=== PATIENT | male | born 1975 | race Caucasian/White ===

== ENCOUNTER 2024-01-10 11:10 | Emergency (ER) | payer SELFPAY ==
--- NOTE | 2024-01-10 11:12 | ECG_ITS ---
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
[2024-01-10 11:20] VITALS: BP 124/90; PULSE 114; TEMP 37.1; O2SAT 96; BMI 17.0
[2024-01-10 11:27] LABS: Basophils Percent Auto 0.1 % (0.2-2.0); Hematocrit 47.6 % (42.0-54.0); Hemoglobin 16.2 g/dL (14.0-18.0); Immature Granulocytes Abs Auto 0.11 10^3/uL (0.00-0.03); Immature Granulocytes Pct Auto 0.5 % (0.0-0.5); Lymphocytes Absolute Auto 1.3 10^3/uL (1.2-3.8); Lymphocytes Percent Auto 5.7 % (20.5-60.0); Mean Corpuscular Hemoglobin 31.5 pg (25.9-34.0); Mean Corpuscular Volume 92.6 fL (80.0-94.0); Mean Platelet Volume 10.1 fL (9.5-13.5); Monocytes Absolute Auto 1.2 10^3/uL (0.3-0.8); Monocytes Percent Auto 5.4 % (1.7-12.0); Neutrophils Absolute Auto 19.7 10^3/uL (1.4-6.5); Neutrophils Percent Auto 88.3 % (43.0-75.0); Platelet Count 288 10^3/uL (150-450); Red Blood Count 5.14 10^6/uL (4.70-6.10); Red Cell Distribution Width 12.8 % (11.0-15.0); White Blood Count 22.3 10^3/uL (4.0-11.0)
[2024-01-10 11:38] LABS: Bilirubin Urine NEGATIVE (NEGATIVE); Blood Urine MODERATE (NEGATIVE); Clarity Urine CLEAR (CLEAR); Color Urine YELLOW (YELLOW); Glucose Urine UA NEGATIVE (NEGATIVE); Ketones Urine NEGATIVE (NEGATIVE); Leukocyte Esterase Urine NEGATIVE (NEGATIVE); Nitrite Urine NEGATIVE (NEGATIVE); Protein Urine 100 mg/dL (NEG/TRACE); Specific Gravity Urine >=1.030 (1.005-1.025); pH Urine 5.5 (5.0-9.0)
[2024-01-10 11:39] LABS: Urine Microscopic Indicated YES
[2024-01-10 11:43] LABS: Alanine Aminotransferase 67 U/L (16-63); Albumin Globulin Ratio 1.2; Albumin Level 4.8 g/dL (3.4-5.0); Alkaline Phosphatase 68 U/L (46-116); Anion Gap 16.1; Aspartate Amino Transferase 23 U/L (15-37); BUN Creatinine Ratio 21.4; Calcium 10.4 mg/dL (8.5-10.1); Carbon Dioxide 27.4 mmol/L (21.0-32.0); Chloride 94 mmol/L (98-107); Estimated GFR (African America 53 (>=60); Estimated GFR (Non-African Ame 44 (>=60); Ethanol <3 mg/dL; Globulin 4.1 g/dL; Glucose 163 mg/dL (74-106); Potassium 4.5 mmol/L (3.5-5.1); Sodium 133 mmol/L (136-145); Total Protein 8.9 g/dL (6.4-8.2)
--- NOTE | 2024-01-10 11:43 | XR_ITS ---
The [address] [address] Patient Name: FUAD DEE MRN: [id number] date: 1975 Sex: M Assigned Patient Location: ER Current Patient Location: ER Accession/Order Number: [id number] Exam Date: 01/10/2024 11:52 Report Date: 01/10/2024 12:06 At the request of: GISELLE LUJAN Procedure: XR chest 1V EXAM: XR chest 1V at 1148 hours HISTORY: elvated wbc COMPARISON: None. TECHNIQUE: AP upright portable chest x-ray FINDINGS: The heart is not enlarged and the vasculature is not distended. No acute infiltrate, effusion or pneumothorax is identified. The lungs appear somewhat overexpanded. The osseous structures are grossly intact. XR/XR chest 1V IMPRESSION: No acute infiltrate or evidence of cardiac decompensation. Electronically authenticated by: PIA LARRY Date: 01/10/2024 12:06
[2024-01-10 11:48] LABS: Amphetamine Screen Urine NEGATIVE (NEGATIVE); Barbiturates Screen Urine NEGATIVE (NEGATIVE); Benzodiazepines Screen Urine NEGATIVE (NEGATIVE); Buprenorphine Screen Urine NEGATIVE (NEGATIVE); Cannabinoid Screen Urine POSITIVE (NEGATIVE); Cocaine Screen Urine POSITIVE (NEGATIVE); Methadone Screen Urine NEGATIVE (NEGATIVE); Methamphetamines Screen Urine NEGATIVE (NEGATIVE); Opiate Screen Urine NEGATIVE (NEGATIVE); Oxycodone Screen Urine NEGATIVE (NEGATIVE); Phencyclidine Screen Urine NEGATIVE (NEGATIVE); Tricyclic Antidepressant Urine NEGATIVE (NEGATIVE)
[2024-01-10 11:51] LABS: Bacteria Urine SMALL #/HPF (NONE SEEN); Cast Seen? NONE SEEN #/LPF (NONE SEEN); Crystals Seen? None Seen #/HPF (None Seen); Mucus Urine NONE SEEN (NONE SEEN); Sperm Urine SEEN; Squamous Epithelial Cell Urine RARE #/LPF (NONE/RARE); Urine Culture Indicated YES
--- NOTE | 2024-01-10 11:59 | ED_ITS ---
HPI - Psych General Chief Complaint: Psychiatric Symptoms Stated Complaint: MENTAL HEALTH EVALUATION Time Seen by Provider: 01/10/24 11:12 Source: Reports patient Mode of arrival: walk-in Limitations: Reports no limitations History of Present Illness HPI Narrative: Patient presents to ED from [facility] for psychiatric evaluation. He called there and they sent him into the emergency room for psychiatric clearance. Patient has a history of schizophrenia bipolar and depression. He reports that he is feeling suicidal and has been hearing some voices. He did have a plan to crash his motorcycle however he does not have his motorcycle anymore so he said he would just use a knife. He denies any self-harm prior to arrival. He does admit to cocaine use last night. He reports chest pain that is been there for the past 2 weeks. He said he was recently in [facility] and they decrease his medication to so he decided to take himself off his medication recently. He does not remember what medication he is supposed to be on. He is alert and oriented and cooperative at this time. Denies abdominal pain nausea or vomiting. He does report chest pain but no cough or shortness of breath. No other complaints at this time. Related Data Home Medications ?Medication ?Instructions ?Recorded ?Confirmed No Known Home Medications 01/10/24 01/10/24 Allergies Allergy/AdvReac Type Severity Reaction Status Date / Time No Known Drug Allergies Allergy Verified 01/10/24 11:20 Review of Systems ROS Status of ROS 10 or more systems reviewed and unremark able except as noted in history and below Exam Constitutional Vital Signs, click to edit/add: Last Vital Signs Temp 98.7 F 01/10/24 11:20 Pulse 114 H 01/10/24 11:20 Resp 18 01/10/24 11:20 BP 124/90 01/10/24 11:20 Pulse Ox 96 01/10/24 11:20 O2 Del Method Room Air 01/10/24 11:20 Documenting provider has reviewed patient's vital signs: yes Common normals: no apparent distress Exam limitations: no altered mental status General appearance: cooperative [facility] Common normals: normocephalic and head/scalp atraumatic Throat: posterior oropharynx normal Chest Common normals: inspection of chest normal Respiratory Common normals: normal respiratory effort and clear to auscultation bilaterally Cardio Common normals: regular rate and regular rhythm GI Common normals: Normal to inspection, nondistended, normoactive bowel sounds present, soft to palpation and non-tender Course Vital Signs Vital signs: Vital Signs Temperature 98.7 F 01/10/24 11:20 Pulse Rate 114 H 01/10/24 11:20 Respiratory Rate 18 01/10/24 11:20 Blood Pressure 124/90 01/10/24 11:20 Pulse Oximetry 96 01/10/24 11:20 Oxygen Delivery Method Room Air 01/10/24 11:20 Temperature 98.7 F 01/10/24 11:20 Pulse Rate 114 H 01/10/24 11:20 Respiratory Rate 18 01/10/24 11:20 Blood Pressure 124/90 01/10/24 11:20 Pulse Oximetry 96 01/10/24 11:20 Oxygen Delivery Method Room Air 01/10/24 11:20 MDM - Psych MDM Narrative Medical decision making narrative: Patient is a labs show an elevated white blood cell count at 22 he however has no complaints of infectious nature. No fever no vomiting. He does complain of chest pain but a chest x-ray was ordered and is clear. Troponin is negative. At this time I do not see an infectious issue going on with the patient. He is stable here in ED. He is eating and drinking without any issue. He is medically cleared for further psychiatric care. Patient was accepted over at [address] For further psychiatric care Differential Diagnosis Differential diagnosis: Likely acute psychosis, chronic schizophrenia, suicidal ideation and bipolar disorder Medical Records Attestation: I reviewed the patient's medical records. Lab Data Attestation: I reviewed the patient's lab results. Labs: Lab Results 01/10/24 01/10/24 Range/Units 11:22 11:29 WBC 22.3 H (4.0-11.0) 10^3/uL RBC 5.14 (4.70-6.10) 10^6/uL Hgb 16.2 (14.0-18.0) g/dL Hct 47.6 (42.0-54.0) % MCV 92.6 (80.0-94.0) fL MCH 31.5 (25.9-34.0) pg MCHC 34.0 (29.9-35.2) g/dL RDW 12.8 (11.0-15.0) % Plt Count 288 (150-450) 10^3/uL MPV 10.1 (9.5-13.5) fL Neut % (Auto) 88.3 H (43.0-75.0) % Lymph % (Auto) 5.7 L (20.5-60.0) % [place] % (Auto) 5.4 (1.7-12.0) % Eos % (Auto) 0.0 L (0.9-7.0) % Baso % (Auto) 0.1 L (0.2-2.0) % Neut # (Auto) 19.7 H (1.4-6.5) 10^3/uL Lymph # (Auto) 1.3 (1.2-3.8) 10^3/uL [place] # (Auto) 1.2 H (0.3-0.8) 10^3/uL Eos # (Auto) 0.0 (0.0-0.7) 10^3/uL Baso # (Auto) 0.0 (0.0-0.1) 10^3/uL Abs Immat Gran (auto) 0.11 H (0.00-0.03) 10^3/uL Imm/Tot Granulo (auto) 0.5 (0.0-0.5) % Sodium 133 L (136-145) mmol/L Potassium 4.5 (3.5-5.1) mmol/L Chloride 94 L (98-107) mmol/L Carbon Dioxide 27.4 (21.0-32.0) mmol/L Anion Gap 16.1 BUN 36.0 H (7.0-18.0) mg/dL Creatinine 1.68 H (0.70-1.30) mg/dL Est GFR ( Amer) 53 L (>=60) Est GFR (Non-Af Amer) 44 L (>=60) BUN/Creatinine Ratio 21.4 Glucose 163 H (74-106) mg/dL Calcium 10.4 H (8.5-10.1) mg/dL Total Bilirubin 1.0 (0.2-1.0) mg/dL AST 23 (15-37) U/L ALT 67 H (16-63) U/L Alkaline Phosphatase 68 (46-116) U/L Troponin I High Sens 6.8 (4.0-76.1) pg/mL Total Protein 8.9 H (6.4-8.2) g/dL Albumin 4.8 (3.4-5.0) g/dL Globulin 4.1 g/dL Albumin/Globulin Ratio 1.2 Urine Color Yellow (YELLOW) Urine Clarity Clear (CLEAR) Urine pH 5.5 (5.0-9.0) Ur Specific [place] >=1.030 A (1.005-1.025) Urine Protein 100 A (NEG/TRACE) mg/dL Urine Glucose (UA) Negative (NEGATIVE) mg/dL Urine Ketones Negative (NEGATIVE) mg/dL Urine Occult Blood Moderate A (NEGATIVE) Urine Nitrite Negative (NEGATIVE) Urine Bilirubin Negative (NEGATIVE) Urine Urobilinogen 1.0 (0.2-1.0) EU/dL Ur Leukocyte Esterase Negative (NEGATIVE) Urine RBC 2-5 A (0-2) #/HPF Urine WBC 2-5 A (NONE SEEN) #/HPF Ur Squamous Epith Cells Rare (NONE/RARE) #/LPF Urine Crystals None seen (None Seen) #/HPF Urine Bacteria Small A (NONE SEEN) #/HPF Urine Casts None seen (NONE SEEN) #/LPF Urine Mucus None seen (NONE SEEN) Urine Sperm Seen Ur Culture Indicated? Yes Urine Opiates Screen Negative (NEGATIVE) Ur Buprenorphine Scrn Negative (NEGATIVE) Ur Oxycodone Screen Negative (NEGATIVE) Urine Methadone Screen Negative (NEGATIVE) Ur Barbiturates Screen Negative (NEGATIVE) U Tricyclic Antidepress Negative (NEGATIVE) Ur Phencyclidine Scrn Negative (NEGATIVE) Ur Amphetamines Screen Negative (NEGATIVE) U Methamphetamines Scrn Negative (NEGATIVE) U Benzodiazepines Scrn Negative (NEGATIVE) Urine Cocaine Screen Positive A (NEGATIVE) U Cannabinoids Screen Positive A (NEGATIVE) Ethanol Quant <3 mg/dL Imaging Data Chest x-ray: Radiologist's impression: ITS Impressions Chest X-Ray 01/10/24 11:43 IMPRESSION: No acute infiltrate or evidence of cardiac decompensation. Electronically authenticated by: PIA LARRY Date: 01/10/2024 12:06 ECG Data Attestation: I personally reviewed and interpreted this ECG as follows: Interpretation: EKG INTERPRETATION Time: []1135 Rate: []94 Rhythm: _ []Normal sinus rhythm ST segments: _ [] T waves: _ [] Ectopy: _ [] P wave/MI interval: _ [] QRS interval: _ [] QT interval: _ [] Comparison: _ [] Comparison EKG date: [] Performed by: [self]No acute ST elevation or depression Discharge Plan Discharge Chief Complaint: Psychiatric Symptoms Clinical Impression: Suicidal ideation Patient Disposition: [facility] Time of Disposition Decision: 15:30 [facility]charge [facility] Mode of Transportation: EMS Discharge Date/Time: 01/10/24 16:00
[2024-01-10 12:06] LABS: Troponin I High Sensitivity 6.8 pg/mL (4.0-76.1)
== END 2024-01-10 16:00 ==
PROVIDERS: Emergency Provider Emergency Medicine; PCP Family Medicine
DX: R45.851 Suicidal ideations (principal); F20.9 Schizophrenia, unspecified; F31.9 Bipolar disorder, unspecified
CPT/HCPCS: 36415; 71045; 80053; 80307; 80320; 81001; 84484; 85025; 87086; 93005; 99285

== ENCOUNTER 2024-03-20 18:06 | Emergency (ER) | payer MEDICAID, SELFPAY ==
[2024-03-20 18:09] VITALS: BP 133/90; PULSE 98; TEMP 37; O2SAT 99
--- OUTSIDE RECORDS SUMMARY | 2024-03-20 18:13 | XMS_ITS | CCD ---
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 PHYSICIAN NO FAMILY Primary Care Provider Active Start: January 11, 2024 Roman Rodriguez MD Admit Provider, Atte nding Provider, Other Provider Active Start: January 11, 2024 FOR RECORDS PERTAINING TO PATIENTS WHO ARE OR HAVE BEEN ENROLLED IN A CHEMICAL DEPENDENCY/SUBSTANCEABUSE PROGRAM, SOME INFORMATION MAY BE OMITTED. This clinical summary was aggregated from multiple sources. Caution should be exercised in using it in the provision of clinical care. This summary normalizes information from multiple sources, and as a consequence, information in this document may materially change the coding, format and clinical context of patient data. In addition, data may be omitted in some cases. CLINICAL DECISIONS SHOULD BE BASED ON THE PRIMARY CLINICAL RECORDS. [facility]. provides no warranty or guarantee of the accuracy or completeness of information in this document.
--- NOTE | 2024-03-20 18:26 | XR_ITS ---
The [address] [address] Patient Name: FUAD DEE MRN: [id number] date: 1975 Sex: M Assigned Patient Location: ER Current Patient Location: ED.MAIN Accession/Order Number: [id number] Exam Date: 03/20/2024 18:35 Report Date: 03/20/2024 19:07 At the request of: SAUD DEVLIN Procedure: XR finger LT min 2V Exam: Radiographs: XR finger LT min 2V Reason for exam: finger laceration Comparison: None XR/XR finger LT min 2V IMPRESSION: Unremarkable left thumb radiographs. Electronically authenticated by: HELENA CASTRO Date: 03/20/2024 19:07
--- NOTE | 2024-03-20 18:26 | ED.GENADUL1 ---
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 He sustained a laceration to the radial aspect of the thumb/hand extending from the thumb to the first metacarpal. No obvious joint exposure or bony exposure. No active bleeding at this time. Patient believes his last tetanus shot was about 12 years ago. No other associated injuries. Related Data Previous Rx's ?Medication ?Instructions ?Recorded cephalexin 500 mg capsule 500 mg PO TID 5 days #15 caps 03/20/24 Allergies Allergy/AdvReac Type Severity Reaction Status Date / Time No Known Drug Allergies Allergy Verified 01/10/24 11:20 Opioid HPI Opioid Management Most Recent Opioid Data: Ur Phencyclidine Scrn Negative (NEGATIVE) 01/10/24 11:29 Review of Systems ROS Constitutional Denies: fever or chills Ears, nose, mouth, and throat Denies: throat pain or nasal congestion Respiratory Denies: shortness of breath Gastrointestinal Denies: nausea or vomiting Integumentary/Breast Denies: rash Neurological Denies: numbness in extremities or weakness in extremities Hematologic/Lymphatic Denies: easy bruising or easy bleeding Exam Narrative Exam Narrative: Gen.: Awake, alert, in no distress Head: Normocephalic, atraumatic ENT: Moist mucous membranes Respiratory: No respiratory distress Extremities: Moves extremities equally, 3 cm laceration extending from the proximal phalanx of the left thumb to the first metacarpal. Subcutaneous tissue is exposed when the laceration is pulled apart, no bony exposure or tendon exposure. Normal flexion and extension at the IP and MCP joint of the left thumb. No evidence of tendon deficit. Psych: Normal mood and affect Neuro: No focal neuro deficit Skin: Warm, dry Constitutional Vital Signs, click to edit/add: Last Vital Signs Temp 98.6 F 03/20/24 18:09 Pulse 98 H 03/20/24 18:09 Resp 16 03/20/24 18:09 BP 133/90 03/20/24 18:09 Pulse Ox 99 03/20/24 18:09 O2 Del Method Room Air 03/20/24 18:09 Course Vital Signs Vital signs: Vital Signs Temperature 98.6 F 03/20/24 18:09 Pulse Rate 98 H 03/20/24 18:09 Respiratory Rate 16 03/20/24 18:09 Blood Pressure 133/90 03/20/24 18:09 Pulse Oximetry 99 03/20/24 18:09 Oxygen Delivery Method Room Air 03/20/24 18:09 Temperature 98.6 F 03/20/24 18:09 Pulse Rate 98 H 03/20/24 18:09 Respiratory Rate 16 03/20/24 18:09 Blood Pressure 133/90 03/20/24 18:09 Pulse Oximetry 99 03/20/24 18:09 Oxygen Delivery Method Room Air 03/20/24 18:09 Medical Decision Making MDM Narrative Medical decision making narrative: Laceration repaired without difficulty. Please see procedure note for details. Tetanus updated in the ER. As the laceration is about 5 hours old, the patient was given an antibiotic as a precaution. Follow-up with PCP in 7 to 10 days for suture removal. Return to the ER if symptoms change or worsen. Laceration repair: Done under sterile conditions. The use of Shur-Clens prep the area. Local injection with lidocaine 1% was used, approximately 6 cc. The wound was irrigated copiously with normal saline. The wound was explored there was no evidence of foreign material. The laceration was approximated with 4-0 nylon. 5 simple interrupted sutures were placed. Patient tolerated the procedure well. The patient was neurovascularly intact post. the patient had bacitracin applied to the laceration and a dry sterile dressing was place. The patient will need to follow-up in the next 7-10 days for removal SHARED APC VISIT, PHYSICIAN ATTESTATION: [id number] I performed a substantive part of the MDM during the patient?s E/M visit. I personally evaluated and examined the patient. I personally made or approved the documented management plan and acknowledge its risk of complications. Medical Records Medical records reviewed: Yes I reviewed the patient's medical records Imaging Data XR finger: Attestation: I have reviewed the pertinent imaging results. Discharge Plan Discharge Stand Alone Forms: Portal Instructions Chief Complaint: Skin/Abscess/Foreign Body Clinical Impression: Laceration of left hand Patient Disposition: Home, Self-Care Time of Disposition Decision: 19:01 Condition: Good Prescriptions / Home Meds: New cephalexin 500 mg capsule 500 mg PO TID 5 Days Qty: 15 0RF Print Language: Chilean Instructions: Laceration (ED) Additional Instructions: Sutures removed in 7-10 days with PCP Referrals: Physician,Non-Staff, MD [Primary Care Provider] - 1 week
[2024-03-20] MEDS: BACITRACIN 0.9 GM PACKET 1 PACKET TOPICAL (18:37)
[2024-03-20] MEDS: ADACEL DIPH,PERTUSS(ACELL),TET VAC/PF 0.5 ML ADULT SYRINGE IM (18:38)
[2024-03-20] MEDS: LIDOCAINE HCL 1% 100 MG/10 ML MDV INJ (18:40)
== END 2024-03-20 19:06 | disposition home or self-care (01) ==
PROVIDERS: Emergency Provider Emergency Medicine
DX: S61.412A Laceration without foreign body of left hand, initial encounter (principal); Z23 Encounter for immunization; W26.8XXA Contact with other sharp object(s), not elsewhere classified, initial encounter
CPT/HCPCS: 12002; 73140; 90471; 90715; 99283

== ENCOUNTER 2024-05-17 08:10 | Outpatient (OUT) | payer MEDICAID, SELFPAY ==
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
[2024-05-17 08:25] LABS: Basophils Percent Auto 0.3 % (0.2-2.0); Eosinophils Absolute Auto 0.5 10^3/uL (0.0-0.7); Hemoglobin 12.7 g/dL (14.0-18.0); Immature Granulocytes Abs Auto 0.11 10^3/uL (0.00-0.03); Lymphocytes Absolute Auto 1.7 10^3/uL (1.2-3.8); Lymphocytes Percent Auto 15.7 % (20.5-60.0); Mean Corpuscular HGB Conc 32.6 g/dL (29.9-35.2); Mean Corpuscular Hemoglobin 31.9 pg (25.9-34.0); Mean Platelet Volume 9.9 fL (9.5-13.5); Monocytes Absolute Auto 0.8 10^3/uL (0.3-0.8); Monocytes Percent Auto 7.7 % (1.7-12.0); Neutrophils Absolute Auto 7.6 10^3/uL (1.4-6.5); Neutrophils Percent Auto 70.3 % (43.0-75.0); Platelet Count 229 10^3/uL (150-450); Red Blood Count 3.98 10^6/uL (4.70-6.10); Red Cell Distribution Width 13.8 % (11.0-15.0); White Blood Count 10.8 10^3/uL (4.0-11.0)
[2024-05-17 09:22] LABS: Alanine Aminotransferase 32 U/L (16-63); Albumin Globulin Ratio 1.2; Albumin Level 3.2 g/dL (3.4-5.0); Alkaline Phosphatase 80 U/L (46-116); Anion Gap 7.2; Aspartate Amino Transferase 16 U/L (15-37); BUN Creatinine Ratio 16.3; Bilirubin Total 0.2 mg/dL (0.2-1.0); Calcium 8.5 mg/dL (8.5-10.1); Carbon Dioxide 31.8 mmol/L (21.0-32.0); Chloride 108 mmol/L (98-107); Estimated GFR (African America >60 (>=60); Estimated GFR (Non-African Ame >60 (>=60); Globulin 2.7 g/dL; Glucose 109 mg/dL (74-106); Sodium 143 mmol/L (136-145); Total Protein 5.9 g/dL (6.4-8.2)
== END 2024-05-17 08:11 | disposition home or self-care (01) ==
LOC: LAB 08:11
PROVIDERS: Visit Provider Nurse Practitioner Family
DX: Z13.228 Encounter for screening for other metabolic disorders (principal); Z13.0 Encounter for screening for diseases of the blood and blood-forming organs and certain disorders involving the immune mechanism
CPT/HCPCS: 36415; 80053; 85025

== ENCOUNTER 2025-02-20 19:09 | Emergency (ER) | payer OTHER, MEDICAID, SELFPAY ==
[2025-02-20 19:15] VITALS: BP 120/81; PULSE 91; TEMP 36.8; O2SAT 97; BMI 22.8
--- OUTSIDE RECORDS SUMMARY | 2025-02-20 19:16 | XMS_ITS | Clinical Summary ---
Author Organization [facility] tem Address [id number] [address] 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 Name Role Phone No Pcp, No Pcp Primary Care Provider Unavailabl e Allergies No known active allergies Medications No known medications Immunizations Immunization Administration Dates Next Due Tdap 09/11/2019 Social History Tobacco Use Types Packs/Day Years Used Date Smoking Tobacco: Every Day Smokeless Tobacco: Never Childcare Answer Date Recorded Childcare Unknown 02/06/2019 Employment Answer Date Recorded Employment Unknown 02/06/2019 Purpose - Life Answer Date Recorded Purpose and direction in life Unknown Sex and Gender Information Value Date Recorded Sex Assigned at Not on file Legal Sex Male 11:31 AM EDT Gender Identity Not on file Sexual Orientation Not on file Last Filed Vital Signs Vital Sign Reading Time Taken Comments Blood Pressure 118/68 09/12/2019 8:56 AM EST Pulse 58 09/12/2019 8:56 AM EST Temperature 36.6 C (97.8 F) 09/12/2019 8:27 AM EST Respiratory Rate 14 09/12/2019 8:56 AM EST Oxygen Saturation 98% 09/12/2019 8:56 AM EST Inhaled Oxygen Concentration - - Weight 56.7 kg (125 lb 1.6 oz) 09/12/2019 8:27 A M EST Height 172.7 cm (5' 8 ) 09/12/2019 8:27 AM EST Body Mass Index 19.02 09/12/2019 8:27 AM EST Plan of Treatment Health Maintenance Due Date Last Done Comments Depression Screening 1987 Tobacco Screening 1987 Adult BMI Screening 1993 Influenza Vaccine 04/28/2025 DTaP,Tdap and Td Vaccines (2 - Td or Tdap) 09/11/2029 09/11/2019 Medical Devices Not on file Insurance [place] [address] [place] [address] [facility] Care Teams Electric Mule Driver Relationship Specialty Start Date End Date No Pcp, [place] [address] PCP - General 09/04/14
--- OUTSIDE RECORDS SUMMARY | 2025-02-20 19:16 | XMS_ITS | Encounter Summary ---
Author Organization [facility] tem Address [id number] [address] [place] [address] Care Team Providers Care Help Desk Agent Name Role Phone No Pcp, No Pcp Primary Care Provider Unavailabl e Encounter Details Date Type Department Care Team (Late st Contact Info) Description 01/11/2024 Orders Only [facility] - Family Medicine [address] [place] [phone] External, Scanning Provider Social History Tobacco Use Types Packs/Day Years [...] on file Sexual Orientation Not on file documented as of this encounter Plan of Treatment Not on file documented as of this encounter Procedures Procedure Name Priority Date/Time Associated Diagnosis Comments XR CHEST 1 VW Routine 01/10/2024 2:48 PM EDT documented in this encounter Results * X-ray chest 1 view (01/10/2024 2:48 PM EDT) Anatomical Region Laterality Modality Body, Chest N/A Computed Radiogr aphy us Scanning Provider External IMG DIAGNOSTIC IMAGIN G ORDERABLES Final Result documented in this encounter Visit Diagnoses Not on filedocumented in this encounter Care Teams Help Desk Agent Relationship Specialty Start Date End Date No Pcp, [place] [address] PCP - General 09/04/14 documented as of this encounter
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
[2025-02-20] MEDS: ONDANSETRON 4 MG RAPDIS TABLET SL (19:48)
[2025-02-20] MEDS: HYDROCODONE/ACET 5-325 MG TABLET 1 TAB PO (19:48)
[2025-02-20] MEDS: HYDROCODONE/ACET 5-325 MG TABLET PO (21:05)
[2025-02-20 21:08] VITALS: BP 120/73; PULSE 78; O2SAT 98
== END 2025-02-20 21:10 | disposition home or self-care (01) ==
PROVIDERS: Emergency Provider Emergency Medicine; PCP Nurse Practitioner Family
DX: S13.4XXA Sprain of ligaments of cervical spine, initial encounter (principal); S40.011A Contusion of right shoulder, initial encounter; S80.01XA Contusion of right knee, initial encounter; V49.49XA Driver injured in collision with other motor vehicles in traffic accident, initial encounter
CPT/HCPCS: 71046; 72125; 73030; 73562; 99285; Q0162

== ENCOUNTER 2025-03-11 15:39 | Emergency (ER) | payer MEDICAID, SELFPAY ==
[2025-03-11 15:43] VITALS: BP 132/83; PULSE 87; TEMP 36.5; O2SAT 99; BMI 20.5
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
[2025-03-11] MEDS: LIDOCAINE HCL 1% 100 MG/10 ML MDV INJ (16:22)
== END 2025-03-11 16:31 | disposition home or self-care (01) ==
PROVIDERS: Emergency Provider Emergency Medicine; PCP Nurse Practitioner Family
DX: S71.112A Laceration without foreign body, left thigh, initial encounter (principal); W31.89XA Contact with other specified machinery, initial encounter
CPT/HCPCS: 12002; 99282